=== PATIENT | female | born 1985 | race Caucasian/White ===

== ENCOUNTER 2017-03-09 09:23 | Emergency (ER) | payer OTHER ==
[~2017-03-09 09:23] MED LIST: BENZONATATE PO; CIPRO PO; CLEOCIN HCL300 M1 PO; IBUPROFEN800 MG PO; NO MEDICATIONS; PHENERGAN25 MG PO; PYRIDIUM PO; REGLAN PO; ROBITUSSIN100 MG/51 PO; TYLENOL #3 PO; VICODIN 5/1 TAB 5/50 PO; YAZ 28 TABLET1 TAB PO; ZITHROMAX PO; ZOFRAN ODT4 MG PO; ZOFRAN PO
[2017-03-09 10:17] LABS: BASOPHIL% 0.3 % (0-2.5); EOSINOPHIL% 0.2 % (0.0-7.0); HEMATOCRIT 39.6 % (35.0-45.0); HEMOGLOBIN 13.5 gm/dL (12.0-16.0); LYMPHOCYTE# 1.9 X10e3 (1.0-3.5); LYMPHOCYTE% 13.9 % (17.0-45.0); MEAN CELL VOLUME 93.3 FL (83-96); MEAN CORPUSCULAR HEMOGLOBIN 31.9 PG (28-34); MEAN CORPUSCULAR HGB CONC 34.2 g/dL (30-36); MEAN PLATELET VOLUME 7.5 FL (6.5-11.5); MONOCYTE# 0.6 X10e3 (0-1.0); MONOCYTE% 4.4 % (3.0-12.0); NEUTROPHIL# 10.9 X10e3 (1.5-7.1); NEUTROPHIL% 81.2 % (40-75); PLATELET COUNT 212 X10e3 (140-420); RED BLOOD COUNT 4.24 X10e (3.90-5.30); RED CELL DISTRIBUTION WIDTH 13.4 % (11.0-15.5); WHITE BLOOD COUNT 13.5 X10e3 (4.0-10.5)
[2017-03-09 10:23] LABS: DIFF IND NO
[2017-03-09 10:29] LABS: ALBUMIN SERUM 4.8 g/dL (3.5-5.0); ALKALINE PHOSPHATASE 83 U/L (32-92); ALT (SGPT) 11 U/L (10-40); AST (SGOT) 17 U/L (10-42); BILIRUBIN,TOTAL 0.5 mg/dL (0.2-2.0); BLOOD UREA NITROGEN 8 mg/dL (9-23); CALCIUM SERUM 9.4 mg/dL (8.4-10.2); CARBON DIOXIDE 25 mmol/L (22-31); CHLORIDE 105 mmol/L (100-111); CREATININE SERUM 0.8 mg/dL (0.6-1.4); GLOM FILT RATE Estimated 99.7 mL/min (>60); GLUCOSE FASTING 122 mg/dL (70-110); LIPASE 32 U/L (22-51); POTASSIUM 3.2 mmol/L (3.5-5.1); PROTEIN TOTAL SERUM 7.9 g/dL (6.0-8.3); SODIUM 138 mmol/L (135-145)
[2017-03-09 10:41] LABS: BILIRUBIN, DIRECT <0.1 mg/dL (0.0-0.2); BILIRUBIN,INDIRECT 0.4 mg/dL (0.0-0.9)
[2017-03-09 12:16] LABS: URINE APPEARANCE CLEAR; URINE BILIRUBIN NEG (NEG); URINE BLOOD 1+ (NEG); URINE COLOR YELLOW; URINE GLUCOSE NEG (NORM); URINE LEUKOCYTE ESTERASE NEG (NEG); URINE NITRATE NEG (NEG); URINE PROTEIN NEG (NEG); URINE SOURCE CLEAN CATCH
[2017-03-09 12:17] LABS: MICRO INDICATED? YES; URINE KETONE 3+ (NEG)
[2017-03-09 12:23] LABS: CULTURE INDICATED? NO; URINE BACTERIA NEG (NEG); URINE RBC 0-2 /[HPF] (0-2); URINE SQUAMOUS EPITHELIAL CELL MANY /[HPF]; URINE WBC NEG /[HPF] (0-5)
[2017-03-09 12:31] LABS: AMPHETAMINE NEG (NEG); BARBITURATES NEG (NEG); BENZODIAZEPINES NEG (NEG); COCAINE NEG (NEG); MARIJUANA POS (NEG); OPIATES NEG (NEG); TRICYCLIC ANTIDEPRESSANTS NEG (NEG); U METHADONE NEG (NEG)
== END 2017-03-09 12:57 | disposition home or self-care (01) ==
LOC: SED 09:23
PROVIDERS: Emergency Medicine
DX: R10.9 Unspecified abdominal pain (principal); E87.6 Hypokalemia; E86.0 Dehydration; F41.9 Anxiety disorder, unspecified; Z98.51 Tubal ligation status; Z88.0 Allergy status to penicillin; Z88.5 Allergy status to narcotic agent; Z91.040 Latex allergy status
CPT/HCPCS: 80048; 80076; 80307; 81003; 83690; 84703; 85025; 96365; 96375; 99284; J1200; J2060; J2765

== ENCOUNTER 2017-03-14 11:43 | Emergency (ER) | payer OTHER ==
--- NOTE | ~2017-03-14 | US67 ---
[facility] A Service of [facility] & [facility] RADIOLOGY TEXT RESULTS PATIENT: OTILIA HUDSON LOCATION: [facility] : 89 UNIT #: [id number] AGE: [address]: Godfrey Noriega MD SEX: F ORDER DR: [id number] [facility] [address] [place], [place] [address] [id number] MR#: [id number] Acc #: [id number] NAME: OTILIA HUDSON. : 1985 SEX: F STUDY DATE/TIME: 03/14/2017 12:38 UNIT: [facility] ROOM: STUDY DESCRIPTION: US Gallbladder Attending Physician: Godfrey Noriega M.D. Ordering Physician: Godfrey Noriega M.D. Primary Care Physician: Rocael Castillo M.D. MEDICAL IMAGING REPORT This report is preliminary unless electronic signature is present EXAM Ultrasound of the gallbladder INDICATIONS Pain for 1 week. This is located within the epigastrium. TECHNIQUE James-scale and color Doppler sonographic images were obtained through the right upper quadrant. FINDINGS Visualized portions the pancreas appear unremarkable. Liver is homogeneous in echotexture. No focal hepatic lesions are seen. There is no intra or extrahepatic biliary dilatation. There is somewhat limited visualization of the right kidney, but no hydronephrosis is identified. No stones or sludge are seen within the gallbladder and there is no gallbladder wall thickening or pericholecystic fluid. IMPRESSION No acute findings. Dictated by... Sandie Levy M.D. THIS IS AN ELECTRONICALLY VERIFIED REPORT Sandie Levy M.D. at 03/15/2017 5:41 PM AFF/to TD: 03/14/2017 18:40 JOB #: [id number] MEDICAL IMAGING REPORT Page 1 of 1 COPY
[2017-03-14 12:22] LABS: BASOPHIL% 0.4 % (0-2.5); DIFF IND NO; HEMATOCRIT 39.5 % (35.0-45.0); HEMOGLOBIN 13.7 gm/dL (12.0-16.0); LYMPHOCYTE# 1.7 X10e3 (1.0-3.5); MEAN CELL VOLUME 91.7 FL (83-96); MEAN CORPUSCULAR HEMOGLOBIN 31.7 PG (28-34); MEAN CORPUSCULAR HGB CONC 34.6 g/dL (30-36); MEAN PLATELET VOLUME 7.6 FL (6.5-11.5); MONOCYTE# 0.6 X10e3 (0-1.0); MONOCYTE% 7.2 % (3.0-12.0); NEUTROPHIL# 6.2 X10e3 (1.5-7.1); NEUTROPHIL% 72.4 % (40-75); PLATELET COUNT 213 X10e3 (140-420); RED BLOOD COUNT 4.31 X10e (3.90-5.30); RED CELL DISTRIBUTION WIDTH 13.3 % (11.0-15.5); WHITE BLOOD COUNT 8.6 X10e3 (4.0-10.5)
[2017-03-14 12:57] LABS: URINE SOURCE CLEAN CATCH
[2017-03-14 12:58] LABS: ALBUMIN SERUM 4.9 g/dL (3.5-5.0); BILIRUBIN, DIRECT 0.2 mg/dL (0.0-0.2); BILIRUBIN,INDIRECT 0.8 mg/dL (0.0-0.9); BUN/CREATININE RATIO 11.25; CALCIUM SERUM 9.7 mg/dL (8.4-10.2); CREATININE SERUM 0.8 mg/dL (0.6-1.4); GLOM FILT RATE Estimated 99.7 mL/min (>60)
[2017-03-14 13:03] LABS: POTASSIUM 2.9 mmol/L (3.5-5.1)
[2017-03-14 13:03] LABS: URINE APPEARANCE CLEAR; URINE BILIRUBIN NEG (NEG); URINE BLOOD NEG (NEG); URINE COLOR YELLOW; URINE GLUCOSE NEG (NEG); URINE KETONE 3+ (NEG); URINE LEUKOCYTE ESTERASE NEG (NEG); URINE NITRATE NEG (NEG); URINE PH 6.5 (5-8); URINE PROTEIN NEG (NEG); URINE SPECIFIC GRAVITY 1.011 (1.003-1.035)
[2017-03-14 13:07] LABS: CULTURE INDICATED? NO
== END 2017-03-14 13:58 | disposition home or self-care (01) ==
LOC: CED 11:43
PROVIDERS: Emergency Medicine
DX: K29.70 Gastritis, unspecified, without bleeding (principal); K21.9 Gastro-esophageal reflux disease without esophagitis; F17.200 Nicotine dependence, unspecified, uncomplicated; Z88.0 Allergy status to penicillin; Z88.5 Allergy status to narcotic agent; Z91.040 Latex allergy status
CPT/HCPCS: 36415; 76705; 80048; 80076; 81003; 82150; 83690; 84703; 85025; 96372; 96374; 99284; J0500; J2405